=== PATIENT | male | born 1960 | race Caucasian/White ===

== ENCOUNTER 2016-11-24 07:13 | Emergency (ER) | payer OTHER ==
[2016-11-24 07:26] VITALS: BP 117/68
--- NOTE | 2016-11-24 07:58 | UC ---
Skin Complaint HPI - HPI Summary HPI Summary: 57 yo male with painful lump scalp x days noted after crew cut worsening after his messed around with it improved since yesterday - History of Current Complaint Chief Complaint: UCSkin Time Seen by Provider: 11/24/16 07:45 Stated Complaint: SKIN COMPLAINT ON HAIRLINE Hx Obtained From: Patient Onset/Duration: Gradual Onset, Lasting Days Timing: Constant Onset Severity: Mild Current Severity: Mild Pain Intensity: 1 Pain Scale Used: 0-10 Numeric Location: Discrete Character: Swelling, Redness, Raised, Painful Aggravating: Touch Alleviating: Nothing Associated Signs & Symptoms: Positive: Tenderness. Negative: Nausea, Vomiting, Numbness, Thirst, Diaphoresis, Weakness, Pallor, Shivering, Difficulty Breathing , Fever, Chills, Cough, Wheezing, Chest Pain, Hoarseness, Throat Tightening, Rash, Abdominal Pain, Lightheadedness, Syncope, Drainage, Bruising, Red Streaks , Joint Swelling - Allergy/Home Medications Allergies/Adverse Reactions: Allergies Allergy/AdvReac Type Severity Reaction Status Date / Time Ibuprofen [From Advil] Allergy Stomach Verified 11/24/16 07:30 Cramps peanuts, mustard, horton Allergy Unknown Uncoded 11/24/16 07:31 Reaction Details Home Medications: Home Medications Acetaminophen TAB* [Tylenol TAB*] 650 mg PO Q6H PRN 11/24/16 [History Confirmed 11/24/16] Review of Systems Constitutional: Negative Skin: Negative Eyes: Negative ENT: Negative Respiratory: Negative Cardiovascular: Negative Gastrointestinal: Negative Genitourinary: Negative Motor: Negative Neurovascular: Negative Musculoskeletal: Negative Neurological: Headache Psychological: Negative All Other Systems Reviewed And Are Negative: Yes PMH/Surg Hx/FS Hx/Imm Hx Previously Healthy: Yes Endocrine History Of: Denies: Diabetes Cardiovascular History Of: Denies: Cardiac Disorders Respiratory History Of: Denies: Asthma GI/ History Of: Reports: Ulcer - s/p NSAIDS use - Surgical History Surgical History: Yes Surgery Procedure, Year, and Place: left wrist surgery August 2015 - Family History Known Family History: Positive: Cardiac Disease, Hypertension Negative: Diabetes - Social History Alcohol Use: Weekly Substance Use Type: None Smoking Status (MU): Never Smoked Tobacco Physical Exam Triage Information Reviewed: Yes Appearance: Well-Appearing, No Pain Distress, Well-Nourished Vital Signs: Initial Vital Signs Temp 98.7 F 04/03/17 07:18 Pulse 77 11/24/16 07:18 Resp 18 11/24/16 07:18 BP 117/68 11/24/16 07:18 Vital Signs Reviewed: Yes Eyes: Positive: Conjunctiva Clear ENT: Positive: Hearing grossly normal, Pharynx normal. Negative: Nasal congestion, Nasal drainage, Trismus, Muffled/hoarse voice Neck: Positive: Supple, Nontender, No Lymphadenopathy Respiratory: Positive: Lungs clear, Normal breath sounds, No respiratory distress, No accessory muscle use Cardiovascular: Positive: RRR Musculoskeletal: Positive: ROM Intact, No Edema Neurological: Positive: Alert Psychological Exam: Normal Skin Exam: Other - see image Course/Dx - Diagnoses Provider Diagnoses: early abscess scalp Discharge - Discharge Plan Condition: Stable Disposition: HOME Prescriptions: DOXYcycline CAP(*) [DOXYcycline 100MG CAP(*)] 100 mg PO BID #20 cap Patient Education Materials: Abscess (ED) Referrals: Martin Jewell MD [Primary Care Provider] - Additional Instructions: you have an early abscess if may resolve with antibiotics if it worsens it may need draining warm soapy compresses 4x day return in 2-3 days if not better if things worsen return Images Head: 1 - 2 cm x 2 cm area of redness/induration, not flutuant
== END 2016-11-24 08:02 | disposition home or self-care (01) ==
LOC: UCCORT 07:13
DX: L02.811 Cutaneous abscess of head [any part, except face] (principal); Z88.6 Allergy status to analgesic agent
CPT/HCPCS: 99212; G0463

== ENCOUNTER 2019-08-18 07:04 | Emergency (ER) | payer OTHER ==
[2019-08-18 07:24] VITALS: BP 98/66
--- NOTE | 2019-08-18 07:52 | UC ---
Throat Pain/Nasal Sp HPI - HPI Summary HPI Summary: 59 yo male with sore throat/nasal congestion/cough, Headache, nausea/vomiting x 1 and diarrhea x 3 days no cp or sob able to tolerate liquids fever and chills headache his worse symptom - History of Current Complaint Chief Complaint: UCGeneralIllness Stated Complaint: ST,SCHAEFFER,COUGH Time Seen by Provider: 08/18/19 07:39 Hx Obtained From: Patient Onset/Duration: Gradual Onset, Lasting Days Severity: Moderate Pain Intensity: 7 Pain Scale Used: 0-10 Numeric Cough: Nonproductive Associated Signs & Symptoms: Positive: Nasal Discharge, Fever, Vomiting, Other - diarrhea. Negative: FB Sensation, Drooling, Wheezing, Hoarseness, Sinus Discomfort, Rash Related History: Prior ENT Surgery, T & A - Epiglottits Risk Factors Epiglottis Risk Factors: Negative - Allergies/Home Medications Allergies/Adverse Reactions: Allergies Allergy/AdvReac Type Severity Reaction Status Date / Time ibuprofen Allergy Stomach Verified 08/18/19 07:19 Cramps peanuts, mustard, horton Allergy Unknown Uncoded 11/24/16 07:31 Reaction Details Home Medications: Home Medications Acetaminophen [Tylenol] 2 tab PO ONCE 08/18/19 [History Confirmed 08/18/19] hydrOXYzine HCL TAB* [Atarax 25 MG TAB*] 25 mg PO EVERY OTHER DAY 08/18/19 [ History Confirmed 08/18/19] PMH/Surg Hx/FS Hx/Imm Hx Previously Healthy: Yes Endocrine History: Dyslipidemia - Surgical History Surgical History: Yes Surgery Procedure, Year, and Place: left wrist surgery August 2015 - Family History Known Family History: Positive: Cardiac Disease, Hypertension Negative: Diabetes - Social History Alcohol Use: Weekly Substance Use Type: None Smoking Status (MU): Never Smoked Tobacco Review of Systems All Other Systems Reviewed And Are Negative: Yes Constitutional: Positive: Fever, Chills, Fatigue Eyes: Positive: Negative ENT: Positive: Sore Throat, Nasal Discharge, Sinus Congestion, Sinus Pain/ Tenderness Respiratory: Positive: Cough Cardiovascular: Positive: Negative Gastrointestinal: Positive: Vomiting, Diarrhea, Nausea Genitourinary: Positive: Negative Motor: Positive: Negative Neurovascular: Positive: Negative Musculoskeletal: Positive: Myalgia Neurological: Positive: Headache Psychological: Positive: Negative Physical Exam Triage Information Reviewed: Yes Appearance: Well-Appearing, No Pain Distress, Well-Nourished Vital Signs: Initial Vital Signs Temp 98.2 F 08/18/19 07:20 Pulse 82 08/18/19 07:20 Resp 16 08/18/19 07:20 BP 98/66 08/18/19 07:20 Pulse Ox 98 08/18/19 07:20 Vital Signs Reviewed: Yes Eyes: Positive: Conjunctiva Clear ENT: Positive: Hearing grossly normal, Pharyngeal erythema, Nasal congestion, TMs normal, Uvula midline. Negative: Nasal drainage, Tonsillar swelling, Tonsillar exudate, Trismus, Muffled voice, Hoarse voice, Sinus tenderness Dental Exam: Normal Neck: Positive: Supple, Nontender, No Lymphadenopathy Respiratory: Positive: Lungs clear, Normal breath sounds, No respiratory distress, No accessory muscle use Cardiovascular: Positive: RRR, No Murmur Musculoskeletal: Positive: ROM Intact, No Edema Neurological: Positive: Alert Psychological Exam: Normal Skin Exam: Normal Diagnostics - Laboratory Lab Results: influenza A + Throat Pain/Nasal Course/Dx - Differential Dx/Diagnosis Provider Diagnosis: Influenza A Discharge ED - Sign-Out/Discharge Documenting (check all that apply): Patient Departure All imaging exams completed and their final reports reviewed: No Studies - Discharge Plan Condition: Stable Disposition: HOME Prescriptions: Benzonatate CAP* [Tessalon CAP*] 100 - 200 mg PO TID PRN #28 cap PRN Reason: Cough Patient Education Materials: Influenza (ED) Forms: *Work Release Referrals: Martin Jewell MD [Primary Care Provider] - 4 Days (if not better) Additional Instructions: rest fluids tylenol - Billing Disposition and Condition Condition: STABLE Disposition: Home
[2019-08-18 08:04] LABS: Influenza A Molecular POSITIVE (Negative)
== END 2019-08-18 08:22 | disposition home or self-care (01) ==
LOC: UCCORT 07:04
DX: J11.1 Influenza due to unidentified influenza virus with other respiratory manifestations (principal)
CPT/HCPCS: 87651; 99212; G0463